=== PATIENT | female | born 1975 | race Caucasian/White ===

== ENCOUNTER 2022-09-08 00:09 | Emergency (ER) | payer OTHER ==
[~2022-09-08] VITALS: Ht 157.5 cm; Wt 115.2 kg
[2022-09-08 00:10] VITALS: BP 142/86
--- NOTE | 2022-09-08 00:10 | NUR ---
TO BED AMBULATORY
--- NOTE | 2022-09-08 00:45 | NUR ---
Dr. Eaton examining patient.
--- NOTE | 2022-09-08 00:50 | NUR ---
46 Y/O F presents with L upper arm pain xyesterday. pt stated she was seen at urgent care yesterday and prescribed ibuprofen. A&Ox4, skin intact, respirations even and unlabored, ambulatory with no assist. pt stated she woke up to L upper arm pain with no trauma or injury to it. pmh- pt denies allergies- fexofenadine
[2022-09-08] MEDS ORDERED: LID5T TP (01:00)
[2022-09-08] MEDS ORDERED: CYCL-711 PO (01:00)
[2022-09-08] MEDS ORDERED: ACET-10509 PO (01:00)
[2022-09-08] MEDS: ACETAMINOPHEN EXTRA STRENGTH 500 MG TAB PO ONE (01:08)
[2022-09-08] MEDS: CYCLOBENZAPRINE 10 MG TAB PO ONE (01:08)
--- NOTE | 2022-09-08 01:09 | NUR ---
Patient discharged with v/s stable. Written and verbal after care instructions given and explained. Patient alert, oriented and verbalized understanding of instructions. Ambulatory with steady gait. All questions addressed prior to discharge. ID band removed. Patient advised to follow up with PMD. Rx of tylenol extra strength, flexeril, lidocaine given. Opportunity to ask questions provided and answered. Dr. Eaton's orders reinforced
== END 2022-09-08 01:09 | disposition home or self-care (01) ==
LOC: MED 00:09
DX: S46.092A Other injury of muscle(s) and tendon(s) of the rotator cuff of left shoulder, initial encounter (principal); Z88.1 Allergy status to other antibiotic agents; Z79.899 Other long term (current) drug therapy; X58.XXXA Exposure to other specified factors, initial encounter; Y93.89 Activity, other specified; Y92.89 Other specified places as the place of occurrence of the external cause; Y99.8 Other external cause status
CPT/HCPCS: 99283